=== PATIENT | female | born 1965 | race African-American/Black ===

== ENCOUNTER 2021-11-21 19:12 | Emergency (ER) | payer SELFPAY ==
[2021-11-21 19:24] VITALS: BP 178/99; PULSE 82; RESP 18; TEMP 98.2; BMI 29.2
[2021-11-21] MEDS ORDERED: DIPHTH,PERTUSS(ACELL),TET 0.5 ML DISP.SYRIN IM ONE ×2 (21:56→22:32)
== END 2021-11-22 00:21 | disposition home or self-care (01) ==
LOC: JER 19:12
PROC: 3E0234Z Introduction of Serum, Toxoid and Vaccine into Muscle, Percutaneous Approach (ICD-10-PCS; principal; 2021-11-21)
DX: S91.114A Laceration without foreign body of right lesser toe(s) without damage to nail, initial encounter (principal); S99.921A Unspecified injury of right foot, initial encounter; W26.8XXA Contact with other sharp object(s), not elsewhere classified, initial encounter
CPT/HCPCS: 73610-TC-RT-FY; 73630-TC-RT-FY; 90715; 99284-25